=== PATIENT | male | born 1985 | race Caucasian/White ===

== ENCOUNTER 2016-11-27 10:37 | Day surgery (SDC) | END 2016-11-27 16:25 | disposition home or self-care (01) | DX: J35.01 Chronic tonsillitis (principal) | CPT/HCPCS: 42826; 88304; J1100; J2405; J3010; Z7512; Z7610 ==

== ENCOUNTER 2016-12-24 05:18 | Day surgery (SDC) | payer OTHER ==
[2016-12-24] VITALS (14 sets, daily range): BP systolic 129–161; BP diastolic 67–84; PULSE 70–104; RESP 14–22; Ht 175.3 cm; Wt 82.6 kg
[~2016-12-24] VITALS: Ht 175.3 cm; Wt 82.6 kg
[2016-12-24] MEDS ORDERED: SUCCINYLCHOLINE CHLORIDE 100 MG/5 ML SYG IV ONE (07:12)
[2016-12-24] MEDS ORDERED: MIDAZOLAM 1 MG/ML 2 ML INJ ONE (07:12)
[2016-12-24] MEDS ORDERED: LIDOCAINE 2% (SDV) 5 ML INJ ONE (07:12)
[2016-12-24] MEDS ORDERED: PROPOFOL 20 ML ONE ×2 (07:12→08:55)
[2016-12-24] MEDS ORDERED: ROPIVACAINE 0.5 % 30 ML VIAL ONE ×3 (07:17→11:46)
[2016-12-24 07:22] LABS: BASOPHILS % 0.3 % (0.0-2.0); EOSINOPHILS # 0.1 10^3/ul (0.0-0.5); EOSINOPHILS % 1.6 % (0.0-7.0); HEMATOCRIT 45.2 % (42.0-52.0); HEMOGLOBIN 15.9 g/dl (14.0-18.0); LYMPHOCYTES # 2.5 10^3/ul (0.8-2.9); MEAN CORPUSCULAR HEMOGLOBIN 31.5 pg (29.0-33.0); MEAN CORPUSCULAR VOLUME 89.8 fl (82.0-101.0); MEAN PLATELET VOLUME 8.4 fl (7.4-10.4); MONOCYTE # 0.5 10^3/ul (0.3-0.9); MONOCYTES % 7.2 % (0.0-11.0); NEUTROPHIL # 4.3 10^3/ul (1.6-7.5); NEUTROPHILS % 57.9 % (39.0-77.0); PLATELET COUNT 277 10^3/UL (140-440); RED BLOOD COUNT 5.04 10^6/ul (4.70-6.10); RED CELL DISTRIBUTION WIDTH 13.7 % (11.5-14.5); UNCORRECTED WBC 7.4 10^3/ul (4.8-10.8); WHITE BLOOD COUNT 7.4 10^3/ul (4.8-10.8)
[2016-12-24 07:24] LABS: CONDITION 1
[2016-12-24] MEDS ORDERED: VANCOMYCIN 1 GM INJ ONE (07:42)
[2016-12-24] MEDS ORDERED: BUPIVACAINE 0.25% (MPF) 30 ML INJ ONE (08:09)
[2016-12-24] MEDS ORDERED: ONDANSETRON 4 MG INJ ONE (08:18)
[2016-12-24] MEDS ORDERED: ROCURONIUM 50 MG INJ ONE (08:18)
[2016-12-24] MEDS ORDERED: METOCLOPRAMIDE 10 MG INJ ONE (08:18)
[2016-12-24] MEDS ORDERED: DEXAMETHASONE 4 MG/ML 1 ML INJ ONE (08:18)
[2016-12-24] MEDS ORDERED: POLYMYXIN/BACITRACIN 1L IRRIG IRR ONE (09:15)
[2016-12-24] MEDS ORDERED: NEOSTIGMINE 3 MG/3 ML SYRINGE ONE (10:44)
[2016-12-24] MEDS ORDERED: GLYCOPYRROLATE 1 MG INJ ONE (10:44)
[2016-12-24] MEDS ORDERED: HYDROmorphONE 2 MG/ML SYG ONE (10:45)
[2016-12-24] MEDS ORDERED: ONDANSETRON 4 MG INJ IV PRN (11:00)
[2016-12-24] MEDS ORDERED: PROCHLORPERAZINE 10 MG INJ IV PRN (11:00)
[2016-12-24] MEDS ORDERED: MEPERIDINE 25 MG INJ IV PRN (11:00)
[2016-12-24] MEDS ORDERED: HYDROmorphONE (0.2 MG/ML) 10ML SYG IV PRN ×2 (11:00)
[2016-12-24] MEDS ORDERED: DIPHENHYDRAMINE 50 MG INJ IV PRN (11:00)
[2016-12-24] MEDS ORDERED: FENTAnyl 50 MCG/ML VIAL IV PRN ×3 (11:00)
[2016-12-24] MEDS ORDERED: NEOMYC/POLYMYX/BACIT 30 GM OINT ONE (11:37)
[2016-12-24] MEDS ORDERED: OXYCODONE/ACETAMINOPHEN (5/325) TAB PO PRN ×4 (12:00→12:30)
[2016-12-24] MEDS: HYDROmorphONE (0.2 MG/ML) 10ML SYG IV PRN ×3 (12:12→12:25)
[2016-12-24] MEDS ORDERED: morphine 2 MG INJ IV PRN (12:30)
--- NOTE | 2016-12-24 12:42 | OPR ---
Date/Time of Note Date/Time of Note DATE: 12/24/16 TIME: 12:25 Operative Report Free Text/Dictation Date of Surgery: 12/24/2016 Attending surgeon: Aaron Argueta MD Globe Tester Surgeon: Spike Argueta MD PREOPERATIVE DIAGNOSES: Right knee anterior cruciate ligament tear rerupture, medial meniscal tear. POSTOPERATIVE DIAGNOSES: Right knee anterior cruciate ligament re-tear, medial a meniscal tear. PROCEDURE: 1. Right knee arthroscopy with revision anterior cruciate ligament reconstruction with Achilles tendon allograft. Fixed with 9 x 25 Hunter and Nephew Softsilk screws as well as 9 x 25 Hunter and nephew bio sure screw backed up fast lock 2. Right knee medial meniscus partial meniscectomy. 3. Right knee chondroplasty 4. Examination under anesthesia. Anesthesia: Normal anesthesia with a fascia iliac is regional block as well as local housing inspectors SURGEON: During the operation, the services of a physician rn surgical were medically indicated and necessary to provide exposure of the operative site, the surgical procedure, and in maintaining the limb in a proper position to carry out the operation safely and efficiently. Without the qualified junior administrative assistant being present, it would have been an extended operative procedure and made the procedure technically more difficult to perform. INDICATIONS: The patient is a 31-year-old male who sustained a re-rupture of his ACL in the past year. He had an original ACL surgery performed approximately 3 years ago at [facility] and he believes that it was loose since the surgery. An MRI confirmed ACL tear and medial and medial meniscal tear. The patient was informed of the risks, benefits, and alternatives to surgery as well as discussion with the patient and the family. The risks include but are not limited to infection, bleeding, damage to vessels and nerves, loss of motion , continued pain, retear of the meniscus, retear of the ACL, deep vein thrombosis, and complications due to anesthesia including nerve injury, myocardial infarction, stroke, . The patient stated understanding of the nature of the surgical procedure and gave written and verbal consent to proceed as well as did the family. PROCEDURE IN DETAIL: The patient was brought back to the operating room and placed supine on the operating table. General anesthesia was induced and a fascia iliaca block was performed. Prior to bringing him to the operating room , the correct operative extremity was marked in the preoperative holding area and confirmed with the patient, family, and consent. Examination of the right knee under anesthesia revealed a full range of motion. Anterior drawer and Sydnee were 2+ and pivot shift was 1+. There was no varus-valgus instability. The right lower extremity was the prepped and draped in normal sterile fashion. A tourniquet was placed proximal on the thigh over a bias stockinette preoperatively. A standard anterior lateral parapatellar stab wound was created. The knee was entered with a blunt tipped obturator followed by a 30 degree video arthroscope. The anterior medial portal was established under arthroscopic control. A routine arthroscopic survey was performed. The suprapatellar pouch was unremarkable. The undersurface of patella was well preserved. The patella appeared to track centrally within the trochlear groove. The medial and lateral gutters were inspected and there were no loose bodies seen. There was no hypertrophic plica. The popliteal hiatus was entered and was unremarkable. The lateral compartment was entered and the articular surfaces of the lateral femoral condyle were largely maintained. There was no evidence of any chondromalacia. Attention was then turned to the intercondylar notch where an anterior cruciate ligament tear was identified with an empty lateral wall sign. Posteromedially, there was no evidence of any loose bodies seen. The posterior cruciate ligament was visualized and appeared to be intact. The medial compartment was entered. The articular surface of the medial femoral condyle and medial patella were well visualized with evidence of a grade 2 chondromalacial injury to the weightbearing surface of the medial femoral condyle. The medial meniscus was torn at the posterior horn extending to the mid portion. The medial meniscus was torn posteriorly and flipped into the posterior aspect of the knee at the white-white zone. A motorized shaver was used to gently abrade the periphery and obtain improved contour of the meniscus at that time to avoid the meniscus from further flipping up. Using both curved and straight baskets to tear the meniscus was saucerized from the posterior horn as well as contoured to the mid zone. The shaver smoothed and contoured the edges to a stable rim. Attention was then turned to reconstruction of the anterior cruciate ligament. The remainder of the torn ACL stump was debrided adequately and there is evidence of notch hyperplasia which was debrided with a mahad to do a complete notchplasty. The posterior wall was exposed adequately. And the original graft was seen in a slightly anterior position where it was ruptured. The tibial graft was also debrided thoroughly. The Achilles allograft was then prepped and the back table. The graft was contoured to approximately 10 mm. This was verified with the 10 mm sizer and then placed on the tensioner to keep tension on the graft. There were 2 perpendicularly directed drill tunnels with a K wire on the bone plug side and # 2 PDS was placed on this area. The tibial side of the ACL was then repaired with a #3 cotton Dacron tape. Simultaneously, the remaining stump of anterior cruciate ligament was removed. A notchplasty was gently performed in a small fashion using a shaver, also using a curette until the over the top position was identified. The drill guide was then inserted after measuring the appropriate length. We used 2 rules , the N + 7 rule and the calculation of the tibial length from drilling the intraarticular and femoral hole length, to determine the appropriate tibial tunnel length. The tibial guidepin was inserted just anterior to the posterior cruciate and just medial in the tibial spine. Extending the knee showed good angulation of the pin. The hole was enlarged to 10 mm and then chamfered. Using a outside in technique and the knee Vector guide a femoral tunnel was identified incision was made over the lateral border of the knee and incision was taken down through the IT band. The Beath pin was then brought into the knee from the lateral aspect of the lateral femoral condyle and then the tunnel was created using a 6 then 8 then 10 mm drill bit. Using a Richland-Vini graft smoother was brought into the knee from the lateral aspect and then used to smooth down the canal over the femoral and tibial canal. The graft sutures were then placed through the slot in the graft smoother and was pulled from the tibia up to the femur with the sutures. The sutures were clamped on the femur and the graft was brought into the femoral hole with cancellous bone on the anterior portion of the femoral hole. We had previously made koch on the graft and knew exactly where the bone ended. The lateral cortex was then flushed with the bone plug which measured approximately 27.6 mm and the entire length of the graft measured approximately 100 mm. Using a nitinol wire that was placed in the lateral aspect of the lateral femoral condyle. This 9 x 25 mm Hunter and Nephew Softsilk screw was then inserted on the cancellous portion of the femur with the knee flexed to 90 degrees from the lateral cortex of the lateral femoral condyle. . Excellent fixation was obtained. Tension was then placed on the graft and the knee was flexed and extended 20 times to get remaining creep out of the graft. The knee was bent 10 degrees and the posterior drawer was applied while the graft was tensioned. A FasT-Fix staple was then placed with the #2 Dacron tape wrapped around the staple to achieve formal and final tension of the graft The guidepin was inserted and an 9 x 25 mm Hunter and Nephew biosure screw was then inserted. Excellent fixation was obtained; The knee had full motion. The arthroscope was inserted again and the ACL showed excellent fixation. There was no graft impingement and the graft was stable in all planes. The wounds were irrigated clear. Deep tissues were closed with 0 Vicryl. The subcutaneous tissues were then closed with a 2-0 Vicryl undyed and 3-0 Monocryl and the skin with a 4-0 Monocryl stitch. Steri-Strips were applied. The knee was then injected with 20 mL of Naropin. A compression dressing was then applied as well as ice pack and a hinged knee brace locked in full extension The patient tolerated the procedure well and was taken to the recovery room in stable condition. At the end of the case, all sponge and needle counts were correct. he can begin weightbearing as tolerated tomorrow with the knee brace locked in extension. He will also be taking aspirin 325 mg by mouth for the next 30 days. Modifier 22 note: This case should be coded with a modifier 22 note is this was a revision ACL case thus requiring extensive amount of time for previous graft removal and a change in the anatomy due to the previous surgery. The case required extensive amount of time for revision of the previous surgery and that should be billed accordingly. Procedure Date: Dec 24, 2016 AARON ARGUETA MD Dec 24, 2016 12:41
== END 2016-12-24 16:00 | disposition home or self-care (01) ==
LOC: SDS 05:18
PROVIDERS: ATTEND Orthopaedic Surgery
DX: S83.511D Sprain of anterior cruciate ligament of right knee, subsequent encounter (principal); X58.XXXD Exposure to other specified factors, subsequent encounter; M23.203 Derangement of unspecified medial meniscus due to old tear or injury, right knee
CPT/HCPCS: 29881; 29888; 85025; 97116; 97162; 97530; C1713; C1762; J0330; J1100; J1170; J2250; J2405; J2710; J2765; J2795; J3010; J3370; Z7512; Z7610

== ENCOUNTER 2017-09-11 11:25 | Inpatient (IN) | payer OTHER ==
[2017-09-06 18:38] VITALS: BMI 26.7
[~2017-09-11] VITALS: Ht 175.3 cm; Wt 81.6 kg
[2017-09-11] VITALS (19 sets, daily range): BP systolic 113–140; BP diastolic 59–88; PULSE 75–100; RESP 10–20; Ht 175.3 cm; Wt 81.6 kg
[~2017-09-11 11:25] MED LIST: GLYCOPYRROLATE 1 MG INJ ONE; NEOSTIGMINE 3 MG/3 ML SYRINGE ONE; SUCCINYLCHOLINE CHLORIDE 100 MG/5 ML SYG IV ONE
[2017-09-11] MEDS ORDERED: TRAM50TA2 PO (11:54)
[2017-09-11] MEDS ORDERED: ROPIVACAINE 0.5 % 30 ML VIAL ONE ×2 (12:54→18:54)
[2017-09-11] MEDS ORDERED: POLYMYXIN/BACITRACIN 1L IRRIG ONE ×2 (12:54→18:56)
--- NOTE | 2017-09-11 13:04 | HPN ---
Date/Time of Note Date/Time of Note DATE: 09/11/17 TIME: 13:04 Interval H&P Admission Note Pt. seen H&P reviewed: No system changes AARON ARGUETA MD Sep 11, 2017 13:04
[2017-09-11] MEDS ORDERED: VANCOMYCIN 1 GM (PMX) 250 ML ONE (13:05)
[2017-09-11] MEDS ORDERED: PROPOFOL 20 ML ONE ×2 (13:12→14:56)
[2017-09-11] MEDS ORDERED: MIDAZOLAM 1 MG/ML 2 ML INJ ONE (13:12)
[2017-09-11] MEDS ORDERED: LIDOCAINE 2% (SDV) 5 ML INJ ONE (13:12)
[2017-09-11] MEDS ORDERED: FENTAnyl 50 MCG/ML VIAL ONE (13:13)
[2017-09-11] MEDS ORDERED: DEXAMETHASONE 4 MG/ML 1 ML INJ ONE (13:31)
[2017-09-11] MEDS ORDERED: ONDANSETRON 4 MG INJ ONE (13:31)
[2017-09-11] MEDS ORDERED: FAMOTIDINE 20 MG INJ ONE (13:31)
[2017-09-11] MEDS ORDERED: PHENYLephrine (100 MCG/ML) 5ML SYG ONE (13:31)
[2017-09-11] MEDS ORDERED: HYDROmorphONE 2 MG/ML SYG ONE (14:47)
[2017-09-11] MEDS ORDERED: ROCURONIUM 50 MG INJ ONE ×2 (14:56→18:03)
[2017-09-11] MEDS ORDERED: FENTAnyl 50 MCG/ML VIAL IV PRN ×3 (19:00)
[2017-09-11] MEDS ORDERED: HYDROmorphONE (0.2 MG/ML) 10ML SYG IV PRN ×2 (19:00)
[2017-09-11] MEDS ORDERED: DIPHENHYDRAMINE 50 MG INJ IV PRN (19:00)
[2017-09-11] MEDS ORDERED: PROCHLORPERAZINE 10 MG INJ IV PRN (19:00)
[2017-09-11] MEDS ORDERED: MEPERIDINE 25 MG INJ IV PRN (19:00)
[2017-09-11] MEDS ORDERED: ONDANSETRON 4 MG INJ IV PRN ×2 (19:00→20:00)
[2017-09-11] MEDS ORDERED: NEOMYC/POLYMYX/BACIT 30 GM OINT ONE (19:13)
--- NOTE | 2017-09-11 19:51 | SIPON ---
Date/Time of Note Date/Time of Note DATE: 09/11/17 TIME: 19:37 Operative Report Preoperative Diagnosis Right knee ACL rupture Right knee medial meniscal tear Right knee medial compartment overload and varus thrust Postoperative Diagnosis Right knee ACL rupture Right knee medial meniscal tear Right knee medial compartment overload and varus thrust Operation/Procedure Performed Right knee arthroscopy with ACL revision reconstruction with bone patella bone autograft Right knee arthroscopy with chondroplasty Right knee arthroscopy with medial partial meniscectomy Right knee biplanar-medial tibial opening wedge osteotomy (packed with Arthrex Osferion wedges soaked in platelet rich plasma spine at 7% hematocrit) Right knee hardware removal Surgeon Aaron Argueta MD office administrative assistant Abraham Mace MD Second assist: LEXUS HEDRICK MD Anesthesia: general, other (fascia iliacus) Estimated blood loss: 50 - 100 ml's Transfusion Required none Specimen removed soft silk screw Grafts/Implants 4.575 Arthrex swivel lock 2 on the femur backup and tibial backup 15 x 3 x 35 x 12 mm Osferion wedges 2 soaked in platelet rich plasma spine at 7 % hematocrit Contour lock Arthrex HTO 6-hole plate, flat, right 6 7 mm 6.5 x 55 and 6.9 x 65 Arthrex cancellous screws 4.5 x 40, 42 and 45 Arthrex cortical screws Mitek Betty screw 9 x 23 on the tibia and Mitek metal screw 8 x 25 on the femur Complications none AARON ARGUETA MD Sep 11, 2017 19:47
[2017-09-11] MEDS ORDERED: OXYCODONE/ACETAMINOPHEN (5/325) TAB PO PRN (20:00)
[2017-09-11] MEDS ORDERED: DIPHENHYDRAMINE 25 MG CAP PO PRN (20:00)
[2017-09-11] MEDS: HYDROmorphONE (0.2 MG/ML) 10ML SYG IV PRN ×3 (20:04→20:45)
[2017-09-11] MEDS: HYDROmorphONE 0.2 MG/ML PCA IV SCH (20:45)
--- NOTE | 2017-09-11 20:53 | OPR ---
Date/Time of Note Date/Time of Note DATE: 09/11/17 TIME: 20:41 Operative Report Procedure Date: Sep 11, 2017 Preoperative Diagnosis Right knee ACL rupture Right knee medial meniscal tear Right knee medial compartment overload and varus malalignment Postoperative Diagnosis Right knee ACL rupture Right knee medial meniscal tear Right knee medial compartment overload and varus malalignment Operation/Procedure Performed Right knee arthroscopy with ACL revision reconstruction with bone patella bone autograft Right knee arthroscopy with chondroplasty Right knee arthroscopy with medial partial meniscectomy Right knee biplanar-medial tibial opening wedge osteotomy (packed with Arthrex Osferion wedges soaked in platelet rich plasma spine at 7% hematocrit) Right knee hardware removal Surgeon Aaron Argueta MD Farm Contractor Abraham Mace MD Second Farm Contractor: LEXUS HEDRICK MD Anesthesia Type: general, other (facia iliacus block and local naropin in the knee joint) Anesthesiologist: ADIA WILSON MD Tourniquet Time: 2 hr 20 min Estimated Blood Loss: 50 - 100 ml's Transfusion none Specimen soft silk screw removed from lateral femur, arthrex tightrope button and staple removed from proximal medial tibia Grafts/Implants 4.575 Arthrex swivel lock 2 on the femur backup and tibial backup 15 x 3 x 35 x 12 mm Osferion wedges 2 soaked in platelet rich plasma spine at 7 % hematocrit Contour lock Arthrex HTO 6-hole plate, flat, right 6 7 mm 6.5 x 55 and 6.9 x 65 Arthrex cancellous screws 4.5 x 40, 42 and 45 Arthrex cortical screws Mitek Betty screw 9 x 23 on the tibia and Mitek metal screw 8 x 25 on the femur Tubes/Drains none Complications none Pt Condition Post Procedure: stable Disposition: PACU Procedure Description The patient was met in the preoperative holding area and the correct operative extremity was confirmed with both patient and consent and marked accordingly. The patient was brought to the operating room and placed supine on the operating room table. General anesthesia was induced and a fascia iliacus block was placed. The right lower extremity was examined under anesthesia. Range of motion was 5 degrees of hyperextension to 135 degrees of flexion. There was no varus or valgus or posterolateral instability. He had no instability to varus or valgus stress at 0 or 30 degrees. He had a 2+ Sydnee and drawer with a positive pivot shift. The patient was given Vancomycin preoperatively. A tourniquet was placed proximally on the thigh over a bias stockinet. The right lower extremity was then prepped and draped in the usual fashion. A standard anterolateral parapatellar stab wound was created. The knee joint was entered with a blunt-tipped obturator, followed by the 30-degree video arthroscope. An anteromedial portal was established under arthroscopic control. A routine arthroscopic survey was performed. The suprapatellar pouch was unremarkable. The undersurface of the patella was well-preserved. The patella appeared to track centrally within the trochlear groove. The medial and lateral gutters were inspected and there was no loose body seen. There was no hypertrophied plica. The popliteal hiatus was entered and was unremarkable. The lateral compartment was entered. The articular surfaces of the lateral femoral condyle was largely well maintained. There was minimal chondromalacia adjacent to the notch. There was chondromalacia along the central aspect of the weight bearing lateral tibial plateau. The lateral meniscus was intact and stable to probing. The intercondylar notch was visualized. The anterior cruciate ligament was loosly attached at its femoral origin and stretched. Posteromedially there was no loose body seen. The posterior cruciate ligament was visualized and appeared intact. The medial compartment was entered. The articular surfaces of the medial femoral condyle and medial tibial plateau were visualized. There was grade 2/3 chondromalacia noted on the medial femoral condyle, and grade 2 chondromalacia noted on the medial tibial plateau. The medial meniscus was visualized and there appeared to be a posterior horn medial meniscus tear at the menisco- capsular junction in the white zone. The meniscal tear was gently debrided with a biter and shave to firm smooth stable meniscal rim and reprobed to show its stability. Following exsanguination with an Esmarch bandage the tourniquet was inflated to 250 mm of mercury. Attention was turned to reconstruction of the anterior cruciate ligament. Using a motorized shaver a minimal notchplasty was performed, exposing the lateral wall and roof of the notch, identifying the [id number] position. The remainder of the anterior cruciate ligament was debrided. The arthroscope was removed. An incision was made of the distal lateral aspect of the femur and taken down past the ITBand to the lateral femoral condyle where the previous metal screw was removed. The scope was brought back into the knee and the remaining debris was cleaned up. Residual ACL was debrided leaving a tibial stump for later revascularization and proprioception. The insertion point of the femoral was delineated and the over the top position was identified. A 10 mm Pin Point guide was placed through the lateral sherman and the ACL anatomic footprint was located and marked. Then through anterior medial portal and the knee was hyperflexed a Beath pin was passed. The Beath pin was passed out the lateral aspect of the femur without difficulty and the femoral tunnel was measured at 10 mm by 30 mm. The beef pin was replaced with a PDS suture. Attention was then turned to the tibia. An incision was made off the inferior pole of the patella extending distally to the tibial tubercle. The patellar tendon which measured approximately 40 mm with the central one-third measuring 10 mm was subsequently harvested. The tibial bone plug measured 25 x 10 and the patellar bone plug measured 20 x 10. The graft was then taken to the back table and prepped accordingly. The arthroscope was reinserted back into the suprapatellar pouch. Incision was made between the MCL and patella tendon and the soft tissue was reflected down into the region of the superficial MCL. After reflecting back the superficial portion of the medial collateral ligament cutting guide for the high tibial osteotomy was positioned at the medial tibia above the level level of the tibial tubercle to osteotomy guide pins were drilled through the guide to within 1 cm of the lateral cortex angle toward the fibular head. With protection in place protecting both the patella tendon and the posterior aspect of the tibia in respect to the neurovascular structures and oscillating saw was positioned against the undersurface of the cutting guide which was used to cut the code cortex medially anteriorly and posteriorly. This is all done under fluoroscopic visualization to ensure both adequate medial opening wedge and anteriorization of the tibial slope. A single blade from the osteotome madan was used to complete the osteotomy and under fluoroscopic guidance done repeatedly throughout the cutting process blades were inserted to increase the osteotomy to approximately 15 correction as well as increasing the slope anteriorly of the tibial slope. The contour lock HTO plate was then applied to the osteotomy and provisionally fixed with BB tacks. And then using the drill guide a proximal 6.5 mm cancellous screw was first placed from posterior to anterior and then centrally to confirm satisfactory correction radiographically. Distally 3 4.5 mm cortical screws were placed from proximal to distal. THE scope was then placed back into the knee. The tibial guide was set at 55 degrees, placed in the posterior medial aspect of the ACL footprint. The guide pin was inserted without difficulty and the tibial tunnel was reamed using a 10 mm solid reamer. Care was taken to pin all bone grafting from the tibial reamings. The soft tissue was debrided and the PDS suture was retrieved at the tibial tunnel. The graft was then passed without difficulty and seated nicely over the femoral condyle. The traction sutures were utilized and the graft was seated nicely in the femoral canal. A 8 x 25 mm mitek metal screw was placed on the lateral femoral cortex from outside in. The distal traction was applied to the graft. The knee was cycled through a range of motion approximately 20 times. The knee was then placed in full extension to prevent over constraining of the knee and the distal fixation was achieved using a 9 x 23 mm Mitek Betty screw which was then backed up with an Arthrex Swivel lock on both the lateral femoral cortex and tibia The arthroscope was reentered and the acl was shown to be well positioned and without laxity with no notch impingement in extension. The residual bone was resected from the tibial tunnel and the arthroscope was directed back into the knee. The graft was palpated and demonstrated to be under exceptional tension. The arthroscope was removed. All excess fluid was removed. The tibial and patellar defects were then bone graft. The patellar tendon was closed using 0 PDS in a running fashion. The peritenon with subcutaneous tissues were closed using 3-0 Vicryl and the subcutaneous layer with 3-0 Monocryl followed by skin was closed using 4-0 Monocryl. Steristrips were applied. The knee was injected with 20 cc of 0.5% plain ropivacaine. A dry sterile dressing was applied, followed by a bulky bandage and DALE stocking with a cold therapy unit placed over the bulky bandage and DALE stocking, insuring no contact with the skin. A postoperative TROM brace was applied locked in full extension. The patient was awakened in the Operating Room and transported to the Recovery Room in satisfactory condition. He appeared to tolerate the procedure well. At the completion of surgery the patient had soft compartments, palpable pulses, and brisk capillary refill. There were no complications noted. LAND MANAGEMENT SUPERVISOR SURGEON: During the operation, the services of a Orthopedic Surgeon timber management assistant were medically indicated and necessary to provide exposure of the operative site for the surgical procedure and to maintain the limb in a proper position to carry out the operation safely and efficiently. Without the qualified timber management assistant being present, it would have extended the operative procedure and made the procedure technically more difficult to perform. AARON ARGUETA MD Sep 11, 2017 20:53
--- NOTE | 2017-09-11 22:10 | RADRPT ---
PROCEDURE: Intraoperative imaging of the right knee with fluoroscopy. CLINICAL INDICATION: Right knee pain. Intraoperative. TECHNIQUE: 31 images of the right knee were obtained in the operating room with an image intensifi er. No radiologist was in attendance. Fluoroscopy time is 77.6 seconds. COMPARISON: No prior study is available for comparison. FINDINGS: Images demonstrate multiple surgical instruments overlying the right knee. IMPRESSION: 1. Intraoperative imaging of the right knee. RPTAT: QQ .Dami Parsons MD, MD Date Time Electronically viewed and signed by .Dami Parsons MD, MD on 09/11/2017 22:10 .R/
[2017-09-11] MEDS: SENNA/DOCUSATE NA (8.6MG/50MG) TAB PO SCH (22:32)
[2017-09-11] MEDS: PREGABALIN 75 MG CAP PO SCH (22:33)
[2017-09-12 00:33] VITALS: BP 114/62; RESP 19
[2017-09-12 01:15] VITALS: BP 112/71; PULSE 97; RESP 19
[2017-09-12] MEDS: VANCOMYCIN 500MG/NS (PMX) 100 ML IVPB SCH ×2 (01:37→13:05)
[2017-09-12 02:32] VITALS: BP 112/70; RESP 19
[2017-09-12] MEDS: HYDROmorphONE 0.2 MG/ML PCA IV SCH ×3 (03:22→17:34)
[2017-09-12 06:20] VITALS: BP 117/72; RESP 19
--- NOTE | 2017-09-12 07:14 | PN ---
Date/Time of Note Date/Time of Note DATE: 09/12/17 TIME: 07:14 Assessment/Plan Lines/Catheters IV Catheter Type (from Nrsg): Saline Lock Wright in Place (from Nrsg): No Assessment/Plan Assessment/Plan POD# 1 s/p Right knee arthroscopy with ACL revision reconstruction with bone patella bone autograft Right knee arthroscopy with chondroplasty Right knee arthroscopy with medial partial meniscectomy Right knee biplanar-medial tibial opening wedge osteotomy (packed with Arthrex Osferion wedges soaked in platelet rich plasma spine at 7% hematocrit) Right knee hardware removal - NWB to the RLE - PT to gt - Reg Diet - Xarleto, SCDs - Pain mgmt consult E Goyo PERDOMO Subjective 24 Hr Interval Summary Pain is quite severe today denies any fevers chills nausea or vomiting Constitutional: improved Feeding: advancing diet Pain Control: severe Exam/Review of Systems Vital Signs Vitals Vital Signs Date Time Temp Pulse Resp B/P Pulse Ox O2 Delivery O2 Flow Rate FiO2 09/13/17 09:00 17 09/13/17 07:33 98.0 69 128/81 98 Exam Constitutional: alert, oriented, well developed Musculoskeletal: other (RLE/ dressing intact, toes wiggle, ankle df/pf/ehl intact, silt to the m/l/d/p/fdws, cr brisk) AARON ARGUETA MD Sep 12, 2017 07:14
[2017-09-12 07:46] VITALS: BP 116/66; PULSE 90; RESP 20
[2017-09-12] MEDS: PREGABALIN 75 MG CAP PO SCH ×2 (08:12→20:48)
[2017-09-12] MEDS: SENNA/DOCUSATE NA (8.6MG/50MG) TAB PO SCH ×2 (09:00→20:47)
--- NOTE | 2017-09-12 14:46 | CONS ---
Date/Time of Note Date/Time of Note DATE: 09/12/17 TIME: 14:38 Assessment/Plan Assessment/Plan Additional Assessment/Plan Postop day 1 extensive right lower extremity surgical procedure. Acute on chronic pain syndrome He is asking for increase in his dosage however only increase moderately 0.3 mg and I will change lockout to 10 minutes. We will continue with OxyIR only discontinue Percocets and I would suggest giving him a small amount of Dilaudid at discharge. Fully agree with alternative medications including pregabalin but will hold on any nonsteroidal anti-inflammatory medications. Consultation Date/Type/Reason Admit Date/Time Sep 11, 2017 at 20:30 Type of Consultation: Pain management Hx of Present Illness This is a very pleasant 32-year-old gentleman who underwent a extensive surgical procedure of his right lower extremity 11 8 1400 hrs. surgery lasted approximately 4 hours. He had what he calls a bad night with extensive severe pain emanating from his knee but radiating both to the calf and the thigh he was not able to sleep. This gentleman is on the WOOD AND HARDWARE OUTFITTER pump at this time and states that he would like to have the dose is increased to get a better nights rest. Patient rates his pain at 7/10 with use of the man dose 5/10 states that the WOOD AND HARDWARE OUTFITTER dose only lacks approximately 10 minute he denies any nausea vomiting pruritus mental cloudiness sweating fatigue or drowsiness he was taking only tramadol every 6 hours 50 mg prior to hospitalization he has no past medical history of excessive medication abuse especially opioids no past medical history of drug addictions no history of purposeful oversedation negative mood changes this gentleman does not appear to be overmedicated and in fact he sitting up looking fairly comfortable now. He has not asked for early renewals and I do not get the impression is using a pain in response to situational stressors. There is insisting on certain pain control medication he has no history of's illicit drug use he smokes last time one week prior to his hospitalization and he drinks socially he states he has no side effects associated with his current pain control meds. Social History Smoking Status: Former smoker Exam/Review of Systems Vital Signs Vitals Vital Signs Date Time Temp Pulse Resp B/P Pulse Ox O2 Delivery O2 Flow Rate FiO2 09/12/17 10:00 17 09/12/17 07:46 98.6 90 116/66 98 Room Air 09/11/17 19:42 8.0 Intake and Output 09/11/17 09/11/17 09/12/17 15:00 23:00 07:00 Intake Total 2500 ml 700 ml Output Total 100 ml 600 ml Balance 2400 ml 100 ml Exam Constitutional: alert, oriented, well developed Psych: No anxiety, No confusion, No depression, No nl mood/affect, No no complaints, No other, No suicidal Head: No atraumatic, No hematomas, No lacerations, No normocephalic, No other Respiratory: No clear to auscultation, No congested cough, No crackles/rales, No diminished breath sounds, No intercostal retraction, No labored breathing, No normal air movement, No other, No respirations, No tactile fremitus, No wheezing Cardiovascular: No S3, No S4, No bruits, No diastolic murmur, No edema, No gallop, No irregular rhythm, No jugular venous distention (JVD), No murmurs/ extra sounds, No nl pulses, No other, No regular rate and rhythm, No rub, No systolic murmur Gastrointestinal: No ascites, No bowel sounds, No distended, No firm, No hepatomegaly, No mass, No nl liver, spleen, No non-tender, No other, No rebound or guarding, No soft, No splenomegaly, No surgical scars, No tender Neurological: No SEISMOGRAPH SHOOTER II-XII intact, No DTR's symmetric, No confused, No focal weakness, No lethargic, No nl mental status, No nl speech, No nl strength, No numbness, No other, No reflexes, No unresponsive Medications Medications Current Medications Senna/Docusate Sodium (Senokot-S) 1 tab BID PO Last administered on 09/11/17t 22:32; Admin Dose 1 TAB; Start 09/11/17 at 21:00 Simethicone (Mylicon) 80 mg TID PRN PO DISTENSION/GAS/BLOATING; Start 09/11/17 at 20:00 Oxycodone/ Acetaminophen (Percocet (5/ 325)) 2 tab Q4H PRN PO PAIN; Start 09/11 at 20:00 Ondansetron HCl (Zofran Inj) 4 mg Q4H PRN IV NAUSEA AND/OR VOMITING; Start 09/11/17 at 20:00 Diphenhydramine HCl (Benadryl) 25 mg Q4H PRN PO ITCHING; Start 09/11/17 at 20: 00 Hydromorphone HCl (Dilaudid WOOD AND HARDWARE OUTFITTER) MG/HR CONTINUOUS RATE ... Q4PCA IV Last administered on 09/12/17 09:39; Admin Dose 6 MG; Start 09/11/17 at 20:30 Oxycodone HCl (Roxicodone) 10 mg Q4H PRN PO PAIN; Start 09/11/17 at 20:30 Pregabalin (Lyrica) 150 mg BID PO Last administered on 09/12/17 08:12; Admin Dose 150 MG; Start 09/11/17 at 21:00 KRISTI WEBB Sep 12, 2017 14:46
[2017-09-12] MEDS ORDERED: RIVAROXABAN 10 MG TABLET PO SCH (17:55)
[2017-09-12] MEDS: oxyCODONE 5 MG TAB PO PRN ×2 (18:53→23:12)
[2017-09-12 20:00] VITALS: BP 116/70; RESP 19
[2017-09-13 02:00] VITALS: BP 114/65; RESP 19
[2017-09-13] MEDS: HYDROmorphONE 0.2 MG/ML PCA IV SCH (04:18)
[2017-09-13] MEDS: oxyCODONE 5 MG TAB PO PRN ×3 (04:21→13:10)
[2017-09-13 07:33] VITALS: BP 128/81; RESP 19
[2017-09-13] MEDS: SENNA/DOCUSATE NA (8.6MG/50MG) TAB PO SCH (08:37)
[2017-09-13] MEDS: PREGABALIN 75 MG CAP PO SCH (08:37)
--- NOTE | 2017-09-13 10:15 | CONS ---
Date/Time of Note Date/Time of Note DATE: 09/13/17 TIME: 10:11 Assessment/Plan Assessment/Plan Chief Complaint/Hosp Course This is a very pleasant 32-year-old gentleman who underwent a extensive surgical procedure of his right lower extremity 11 8 1400 hrs. surgery lasted approximately 4 hours. He had what he calls a bad night with extensive severe pain emanating from his knee but radiating both to the calf and the thigh he was not able to sleep. This gentleman is on the LAP POLISHER pump at this time and states that he would like to have the dose is increased to get a better nights rest. Patient rates his pain at 7/10 with use of the man dose 5/10 states that the LAP POLISHER dose only lacks approximately 10 minute he denies any nausea vomiting pruritus mental cloudiness sweating fatigue or drowsiness he was taking only tramadol every 6 hours 50 mg prior to hospitalization he has no past medical history of excessive medication abuse especially opioids no past medical history of drug addictions no history of purposeful oversedation negative mood changes this gentleman does not appear to be overmedicated and in fact he sitting up looking fairly comfortable now. He has not asked for early renewals and I do not get the impression is using a pain in response to situational stressors. There is insisting on certain pain control medication he has no history of's illicit drug use he smokes last time one week prior to his hospitalization and he drinks socially he states he has no side effects associated with his current pain control meds. Problems: Additional Assessment/Plan Appears better today without nausea vomiting chest pain shortness of breath dizziness diplopia disorientation. Slept better last night also bowel movement this morning. I discussed with him that the use of pregabalin and anti- inflammatories low doses seem to be just as efficacious as opioids occasionally and postoperatively. We will discontinue his LAP POLISHER today and leave him on low dose of OxyIR. Consultation Date/Type/Reason Admit Date/Time Sep 11, 2017 at 20:30 Initial Consult Date Type of Consultation: Pain management Exam/Review of Systems Vital Signs Vitals Vital Signs Date Time Temp Pulse Resp B/P Pulse Ox O2 Delivery O2 Flow Rate FiO2 09/13/17 07:33 98.0 69 19 128/81 98 09/12/17 07:46 Room Air 09/11/17 19:42 8.0 Intake and Output 1109/12/17 09/13/17 15:00 23:00 07:00 Intake Total 100 ml 600 ml 1100 ml Output Total 1800 ml Balance 100 ml 600 ml -700 ml Exam Constitutional: alert, oriented, well developed Neurological: SHORT PIECE HANDLER II-XII intact, nl mental status, nl speech, nl strength Medications Medications Current Medications Senna/Docusate Sodium (Senokot-S) 1 tab BID PO Last administered on 09/13/17 08:37; Admin Dose 1 TAB; Start 09/11/17 at 21:00 Simethicone (Mylicon) 80 mg TID PRN PO DISTENSION/GAS/BLOATING; Start 09/11/17 at 20:00 Oxycodone/ Acetaminophen (Percocet (5/ 325)) 2 tab Q4H PRN PO PAIN; Start 09/11 at 20:00 Ondansetron HCl (Zofran Inj) 4 mg Q4H PRN IV NAUSEA AND/OR VOMITING; Start 09/11/17 at 20:00 Diphenhydramine HCl (Benadryl) 25 mg Q4H PRN PO ITCHING; Start 09/11/17 at 20: 00 Hydromorphone HCl (Dilaudid LAP POLISHER) MG/HR CONTINUOUS RATE ... Q4PCA IV Last administered on 09/13/17 04:18; Admin Dose 6 MG; Start 09/11/17 at 20:30 Oxycodone HCl (Roxicodone) 10 mg Q4H PRN PO PAIN Last administered on 08:38; Admin Dose 10 MG; Start 09/11/17 at 20:30 Pregabalin (Lyrica) 150 mg BID PO Last administered on 09/13/17 08:37; Admin Dose 150 MG; Start 09/11/17 at 21:00 KRISTI WEBB Sep 13, 2017 10:15
--- NOTE | 2017-09-13 12:26 | PN ---
Date/Time of Note Date/Time of Note DATE: 09/13/17 TIME: 12:26 Assessment/Plan Lines/Catheters IV Catheter Type (from Nrsg): Peripheral IV Wright in Place (from Nrsg): No Assessment/Plan Assessment/Plan POD# 2 s/p Right knee arthroscopy with ACL revision reconstruction with bone patella bone autograft Right knee arthroscopy with chondroplasty Right knee arthroscopy with medial partial meniscectomy Right knee biplanar-medial tibial opening wedge osteotomy (packed with Arthrex Osferion wedges soaked in platelet rich plasma spine at 7% hematocrit) Right knee hardware removal - NWB to the RLE - PT to gt - Reg Diet - Xarleto, SCDs - Pain mgmt consult appreciated likely dc home today E Goyo PERDOMO E Goyo PERDOMO Subjective 24 Hr Interval Summary Better today, pain is controlled Exam/Review of Systems Vital Signs Vitals Vital Signs Date Time Temp Pulse Resp B/P Pulse Ox O2 Delivery O2 Flow Rate FiO2 09/13/17 09:00 17 09/13/17 07:33 98.0 69 128/81 98 Exam Constitutional: alert, oriented, well developed Musculoskeletal: other (RLE/ df/pf intact, toes wiggle, cr brisk silt to distal extremity) AARON ARGUETA MD Sep 13, 2017 12:26
--- NOTE | 2017-09-13 12:27 | PDOCDIS ---
Discharge Instructions DIAGNOSIS Discharge Diagnosis Right knee ACL rupture CONDITION Patient Condition: Good HOME CARE INSTRUCTIONS: Diet Instructions: Regular ACTIVITY: Activity Restrictions: Avoid heavy lifting Do not Drive Do not operate Machinery Do not operate Power Tool Keep Limb Elevated No Weight Bearing REFERRALS Other Referrals 1 week at [facility] MD Sep 13, 2017 12:27
--- NOTE | 2017-09-13 12:27 | DS ---
Date/Time of Note Date/Time of Note DATE: 09/13/17 TIME: 12:27 Discharge Summary Admission/Discharge Info Admit Date/Time Sep 11, 2017 at 20:30 Discharge Date/Time 09/13/17 Discharge Diagnosis Right knee acl tear Patient Condition: Good Consults pain management Procedures Right knee revision ACL reconstruction with BTB autograft, medial HTO, partial medial meniscectomy Hospital Course This is a very pleasant 32-year-old gentleman who underwent a extensive surgical procedure of his right lower extremity 11 8 1400 hrs. surgery lasted approximately 4 hours. He had what he calls a bad night with extensive severe pain emanating from his knee but radiating both to the calf and the thigh he was not able to sleep. This gentleman is on the SENIOR HR GENERALIST pump at this time and states that he would like to have the dose is increased to get a better nights rest. Patient rates his pain at 7/10 with use of the man dose 5/10 states that the SENIOR HR GENERALIST dose only lacks approximately 10 minute he denies any nausea vomiting pruritus mental cloudiness sweating fatigue or drowsiness he was taking only tramadol every 6 hours 50 mg prior to hospitalization he has no past medical history of excessive medication abuse especially opioids no past medical history of drug addictions no history of purposeful oversedation negative mood changes this gentleman does not appear to be overmedicated and in fact he sitting up looking fairly comfortable now. He has not asked for early renewals and I do not get the impression is using a pain in response to situational stressors. There is insisting on certain pain control medication he has no history of's illicit drug use he smokes last time one week prior to his hospitalization and he drinks socially he states he has no side effects associated with his current pain control meds. Home Meds Discontinued Reported Medications Tramadol HCl (Tramadol HCl) 50 Mg Tablet, 50 MG PO Q6H Y for PAIN, #120 TAB 09/11/17 Follow-up Plan Follow-up with Dr. Ab Argueta in 1 week Primary Care Provider Phillip Adrian Time spent on discharge: < 30 minutes AB ARGUETA MD Sep 13, 2017 12:27
== END 2017-09-13 13:05 | disposition home or self-care (01) | DRG 489 ==
LOC: SDS 11:25 → REC 20:30 → MS1 21:20
PROVIDERS: ADMIT Orthopaedic Surgery; ATTEND Orthopaedic Surgery
PROC: 0QPB04Z Removal of Internal Fixation Device from Right Lower Femur, Open Approach (ICD-10-PCS; 2017-09-11)
PROC: 0SBC4ZZ Excision of Right Knee Joint, Percutaneous Endoscopic Approach (ICD-10-PCS; 2017-09-11)
PROC: 0QSG04Z Reposition Right Tibia with Internal Fixation Device, Open Approach (ICD-10-PCS; 2017-09-11)
PROC: 0MRN47Z Replacement of Right Knee Bursa and Ligament with Autologous Tissue Substitute, Percutaneous Endoscopic Approach (ICD-10-PCS; principal; 2017-09-11 13:00)
DX: S83.511A Sprain of anterior cruciate ligament of right knee, initial encounter (principal); G89.18 Other acute postprocedural pain; M94.261 Chondromalacia, right knee; M21.161 Varus deformity, not elsewhere classified, right knee; S83.241A Other tear of medial meniscus, current injury, right knee, initial encounter; G89.4 Chronic pain syndrome
CPT/HCPCS: 73562; 82306; 88300; 97161; C1762; J1100; J1170; J2250; J2370; J2405; J2710; J2795; J3010; J3370

== ENCOUNTER 2019-03-26 08:42 | Day surgery (SDC) | payer OTHER ==
[2019-03-25 16:01] VITALS: BMI 26.6
[2019-03-26] VITALS (26 sets, daily range): BP systolic 90–131; BP diastolic 48–82; PULSE 58–94; RESP 13–20; Ht 175.3 cm; Wt 82.6 kg
[~2019-03-26] VITALS: Ht 175.3 cm; Wt 82.6 kg
[2019-03-26] MEDS ORDERED: LACTATED RINGER'S 1,000 ML IV SCH (09:44)
--- NOTE | 2019-03-26 11:16 | PREAC ---
Date/Time of Note Date/Time of Note DATE: 03/26/19 TIME: 11:15 Anesthesia Eval and Record Evaluation Time Pre-Procedure Interview DATE: 03/26/19 TIME: 11:15 Age 34 Sex male NPO: 8 hrs Preoperative diagnosis R knee pain Planned procedure R knee hardware removal Past Medical History Past Medical History: None Surgery & Anesthesia Issues No known issue Meds Anticoagulation: No Beta Shawn within 24 hr: No Reason Beta Shawn not given: Pt. not on B-Shawn No Active Prescriptions or Reported Meds Current Medications Lactated Ringer's 1,000 ml @ 25 mls/hr Q24H IV Last administered on 03/26/19at 09:56; Admin Dose 25 MLS/HR; Start 03/26/19 at 09:44 Meds reviewed: Yes Allergies Coded Allergies: Penicillins (Verified Allergy, Unknown, 03/26/19) Allergies Reviewed: Yes Labs/Studies Labs Reviewed: Reviewed by anesthesiologist test: N/A Pre-procedure Exam Last vitals Vital Signs Date Temp Pulse Resp B/P (MAP) Pulse Ox O2 O2 Flow FiO2 Time Delivery Rate 03/26/19 97.4 94 16 131/82 98 Room Air 09:39 (98) Airway: Adequate mouth opening, Adequate thyromental dist Mallampati: Mallampati II Teeth: Normal Lung: Normal Heart: Normal ASA Physical Status ASA physical status: 1 Emergency: None Planned Anesthetic General/MAC: ETT Nerve block: Femoral (right) Pre-operative Attestations Prior to commencing anesthesia and surgery, the patient was re-evaluated, there was verification of: *The patient's identity *The results of appropriate recent lab work and preoperative vital signs *The above evaluation not changing prior to induction *Anesthetic plan, risk benefits, alternative and complications discussed with patient/family; questions answered; patient/family understands, accepts and wishes to proceed. SAV URRUTIA March 26, 2019 11:16
--- NOTE | 2019-03-26 11:18 | HPN ---
Date/Time of Note Date/Time of Note DATE: 03/26/19 TIME: 11:18 Interval H&P Admission Note Pt. seen H&P reviewed: No system changes AARON ARGUETA MD March 26, 2019 11:18
[2019-03-26] MEDS ORDERED: ROPIVACAINE 0.5 % 30 ML VIAL ONE ×2 (11:23→11:35)
[2019-03-26] MEDS ORDERED: NEOMYC/POLYMYX/BACIT 30 GM OINT ONE (11:23)
[2019-03-26] MEDS ORDERED: LIDOCAINE 1% (MPF) 30 ML INJ ONE (11:23)
[2019-03-26] MEDS ORDERED: HYDROmorphONE 1 MG/5 ML IV SYRINGE IV PRN ×2 (11:30)
[2019-03-26] MEDS ORDERED: ONDANSETRON 4 MG INJ IV PRN (11:30)
[2019-03-26] MEDS ORDERED: FENTAnyl 50 MCG/ML VIAL IV PRN ×3 (11:30)
[2019-03-26] MEDS ORDERED: METOCLOPRAMIDE 10 MG INJ IV PRN (11:30)
[2019-03-26] MEDS ORDERED: ALBUTEROL 0.083% (NEB) 2.5 MG/3 ML AMP HHN PRN (11:30)
[2019-03-26] MEDS ORDERED: DIPHENHYDRAMINE 50 MG INJ IV PRN (11:30)
[2019-03-26] MEDS ORDERED: MEPERIDINE 25 MG INJ IV PRN (11:30)
[2019-03-26] MEDS ORDERED: ROCURONIUM 50 MG INJ ONE (11:34)
[2019-03-26] MEDS ORDERED: PROPOFOL 20 ML ONE (11:34)
[2019-03-26] MEDS ORDERED: MIDAZOLAM 1 MG/ML 2 ML INJ ONE (11:34)
[2019-03-26] MEDS ORDERED: LIDOCAINE 100 MG SYRINGE ONE (11:34)
[2019-03-26] MEDS ORDERED: SUCCINYLCHOLINE CHLORIDE 100 MG/5 ML SYG IV ONE (11:34)
[2019-03-26] MEDS ORDERED: FENTAnyl 50 MCG/ML VIAL ONE (11:35)
[2019-03-26] MEDS ORDERED: POLYMYXIN/BACITRACIN 1L IRRIG IRR ONE (13:34)
[2019-03-26] MEDS ORDERED: SUGAMMADEX SODIUM 200 MG/2 ML VIAL IV ONE (14:16)
--- NOTE | 2019-03-26 14:53 | PAC ---
Date/Time of Note Date/Time of Note DATE: 03/26/19 TIME: 14:53 Post-Anesthesia Notes Post-Anesthesia Note Last documented vital signs Vital Signs Date Temp Pulse Resp B/P (MAP) Pulse Ox O2 O2 Flow FiO2 Time Delivery Rate 03/26/19 97.4 94 16 131/82 98 Room Air 09:39 (98) Activity: WNL Respiratory function: WNL Cardiovascular function: WNL Mental status: Baseline Pain reasonably controlled: Yes Hydration appropriate: Yes Nausea/Vomiting absent: Yes JULIAN SANDHU March 26, 2019 14:53
[2019-03-26] MEDS: HYDROmorphONE 1 MG/5 ML IV SYRINGE IV PRN ×3 (15:16→15:54)
[2019-03-26] MEDS ORDERED: KETOROLAC 30 MG INJ IV STA (15:39)
[2019-03-26] MEDS ORDERED: KETOROLAC 30 MG INJ ONE (15:42)
--- NOTE | 2019-03-26 17:05 | OPR ---
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 Right knee anterior lateral ligament tear Operation/Procedure Performed Right knee arthroscopy with chondroplasty and partial medial meniscectomy Right knee Hypertrophic Scar Revision Right knee extra-articular repair of the Anterior Lateral Ligament Right leg hardware removal from the medial tibia - separate incision site Right knee application of PRP - 2% Hct Surgeon Ab Argueta MD Senior Construction Project Manager Marbin Guardado MD Anesthesia Type: general Anesthesiologist: CAT ROWLAND DO Tourniquet Time: min at 250 m Estimated Blood Loss: minimal Transfusion none Specimen none Grafts/Implants Arthrex PRP at 2% Hct Arthrex Internal Brace with 2 Swivel Lock 4.75 Complications none Pt Condition Post Procedure: stable Disposition: PACU Indications Patient is a 34-year-old male who is status post 3 ACL surgeries and a high tibial osteotomy secondary to medial compartment overload over 1 year ago. Patient has ongoing pain over the medial proximal tibia where his hardware is located. He also notes ongoing feeling of instability and clicking over the anterior lateral aspect of his knee. Given his ongoing hardware related pain and feeling of instability patient is indicated for surgery. Risk Note: Patient was explained the risks and benefits of surgery and the patient's [place] language including not limited to infection, bleeding, injury to blood vessels, nerves, ligaments or tendons. Risks of anesthesia, deep vein thrombosis and need for reduce future surgery. Patient acknowledged these risk by signing the surgical consent form. Procedure Description The patient was met in the preoperative holding area and the correct operative extremity was confirmed with both patient and consent and marked accordingly. The patient was brought to the operating room and placed supine on the operating room table. General anesthesia was induced and a fascia iliacus block was placed. The right lower extremity was examined under anesthesia. Range of motion was 5 degrees of hyperextension to 135 degrees of flexion. There was no varus or valgus or posterolateral instability. He had no instability to varus or valgus stress at 0, however at 30 degrees he has increased varus instability with increased anterolateral rotational instability The patient was given Clindamycin preoperatively. A tourniquet was placed proximally on the thigh over a bias stockinet. The right lower extremity was then prepped and draped in the usual fashion. A standard anterior lateral parapatellar stab wound was created. The knee was entered with a blunt tipped obturator followed by a 30 degree video arthroscope. The anterior medial portal was established under arthroscopic control. A routine arthroscopic survey was performed. The suprapatellar pouch was unremarkable. The undersurface of patella was well preserved. The patella appeared to track centrally within the trochlear groove. The medial and lateral gutters were inspected and there were no loose bodies seen. There was no hypertrophic plica. The popliteal hiatus was entered and was unremarkable. The lateral compartment was entered and the articular surfaces of the lateral femoral condyle were largely maintained. There was no evidence of any chondromalacia. Attention was then turned to the intercondylar notch where anterior cruciate ligament was identified and found to be intact. Posteromedially, there was no evidence of any loose bodies seen. The posterior cruciate ligament was visualized and appeared to be intact. The medial compartment was entered. The articular surface of the medial femoral condyle and medial patella were well visualized with evidence of a grade 2 chondromalacial injury to the weightbearing surface of the medial femoral condyle. The medial meniscus was torn and frayed at the posterior horn extending to the mid portion. The medial meniscus was trimmed with a motorized shaver to obtain an improved contour of the meniscus. The shaver smoothed and contoured the edges to a stable rim on probing. Attention was then turned to medial proximal tibia. Hypertrophic scar was identified over the proximal medial tibia that was painful for the patient. The scar was precisely and expertly incised and removed. The remainder of the incision was made over the site of the previous high tibial osteotomy and brought down to the hardware site with care to avoid any injury to the surrounding neurovascular structures. The plates and screws were identified and removed without any complication. The wound was rasped and curetted thoroughly at the bone to create a smooth area along the proximal medial tibia. The wound was irrigated thoroughly and closed in layers with 2-0 Vicryl followed by 3-0 Monocryl and 4-0 Monocryl to ensure excellent healing and further prevention of hypertrophic scarring Attention was turned to the anterior lateral ligament. Given his degree of anterior lateral rotatory instability and on fluoroscopy evidence of gapping with anterior lateral varus stress the ligament repair was indicated. This was made over the anterior lateral ligament which runs obliquely from the femur to Gerdy's tubercle. Over the femur the insertion point was identified approximately 8 mm proximal and 4.3 mm posterior to the lateral epicondyle. K wire was placed at this site. Attention was then turned to good Gerdy's tubercle. The K wire was then placed 22 mm posterior to the tubercle and 10 mm distal to the joint line. The isometry was then tested by wrapping FiberWire around the pin and moving the leg to range of motion. When the FiberWire was held positive extension it showed it to be isometric and became slightly shorter by no more than 5 mm as it moved to 90 degrees of flexion. The proximal K wire was then overdrilled and the 4.75 swivel lock was placed at the femoral attachment site. Second swivel lock was placed at the tibial attachment site. The fiber tape was then passed under iliotibial band and then brought in through the second swivel lock with the knee held in full extension and neutral rotation and slight valgus. There is shown to be excellent fixation and the proximal sutures were then reinforced with a third swivel lock just proximal to the femoral swivel lock and then the remainder of the anterior lateral ligament was reefed at the proximal attachment. The wound was irrigated thoroughly and closed in layers with 0 Vicryl at the IT band followed by 2-0 Vicryl followed by 3-0 Monocryl for Monocryl. The wound was then dressed with Steri-Strips and the remainder of the portal sites were closed with 4-0 Monocryl and dressed with Steri-Strips. The knee was then injected with platelet rich plasma spine at 2% hematocrit and 20 mL of Naropin. A compression dressing was then applied as well as ice pack a nd a hinged knee brace locked in full extension The patient tolerated the procedure well and was taken to the recovery room in stable condition. At the end of the case, all sponge and needle counts were correct. he can begin weightbearing as tolerated tomorrow with the knee brace locked in extension. He will also be taking aspirin 325 mg by mouth for the next 30 days. Modifier 22 note: This case should be coded with a modifier 22 note is this was a revision knee surgery case and required a complex repair of the anterior lateral ligament case thus requiring extensive amount of time for preparation and placement of the repair and a change in the anatomy due to the previous surgery. The case required extensive amount of time for revision of the previous surgery and that should be billed accordingly. PILOT TEACHER SURGEON: During the operation, the services of a orthopedic physician certified surgical tech/first assistant were medically indicated and necessary to provide exposure of the operative site, the surgical procedure, and in maintaining the limb in a proper position to carry out the operation safely and efficiently. Without the qualified tourist information assistant being present, it would have been an extended operative procedure and made the procedure technically more difficult to perform. AB ARGUETA MD March 26, 2019 17:05
[2019-03-26] MEDS ORDERED: morphine 2 MG INJ IV PRN (17:30)
[2019-03-26] MEDS ORDERED: KETOROLAC 30 MG INJ IV SCH (17:30)
== END 2019-03-26 18:25 | disposition home or self-care (01) ==
LOC: SDS 08:42 → EDSTATUS 11:30 → SDS 18:25
PROVIDERS: ATTEND Orthopaedic Surgery
DX: T84.84XA Pain due to internal orthopedic prosthetic devices, implants and grafts, initial encounter (principal); Y79.3 Surgical instruments, materials and orthopedic devices (including sutures) associated with adverse incidents; Y83.8 Other surgical procedures as the cause of abnormal reaction of the patient, or of later complication, without mention of misadventure at the time of the procedure; S83.241D Other tear of medial meniscus, current injury, right knee, subsequent encounter; M94.261 Chondromalacia, right knee; L91.0 Hypertrophic scar; S83.511D Sprain of anterior cruciate ligament of right knee, subsequent encounter; X58.XXXD Exposure to other specified factors, subsequent encounter
CPT/HCPCS: 20680; 29881; 29888; 73562; 82306; J1170; J1885; J2001; J2175; J2250; J2405; J2795; J3010; Z7512; Z7610; 88300